=== PATIENT | female | born 1980 | race African-American/Black ===

== ENCOUNTER 2016-04-04 12:24 | Emergency (ER) | payer MEDICAID, OTHER ==
[~2016-04-04 12:24] MED LIST: AZIT1POW PO; Z.0.NO CURRENT MEDS
[2016-04-04 12:31] VITALS: BP 132/78; PULSE 98; RESP 18; TEMP 98.1; O2SAT 100
== END 2016-04-04 12:37 | disposition left against medical advice (07) ==
LOC: NEPC 12:24
DX: R07.9 Chest pain, unspecified (principal); Z53.21 Procedure and treatment not carried out due to patient leaving prior to being seen by health care provider
CPT/HCPCS: 99281

== ENCOUNTER 2016-06-08 11:11 | Emergency (ER) | payer OTHER ==
[~2016-06-08] VITALS: Ht 167.6 cm; Wt 92.0 kg
[2016-06-08 11:12] VITALS: BP 132/81; PULSE 94; RESP 16; TEMP 97.8; O2SAT 97
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
== END 2016-06-08 13:27 | disposition home or self-care (01) ==
LOC: NEPC 11:11
DX: T76.21XA Adult sexual abuse, suspected, initial encounter (principal)
CPT/HCPCS: 99281

== ENCOUNTER 2017-01-01 18:18 | Emergency (ER) | payer OTHER ==
[~2017-01-01] VITALS: Ht 167.6 cm; Wt 86.0 kg
[2017-01-02] MEDS ORDERED: HYDR-3533 PO (02:24)
[2017-01-02] MEDS ORDERED: CLIN150 PO (02:24)
== END 2017-01-01 20:03 | disposition left against medical advice (07) ==
LOC: NED 18:18
DX: R22.0 Localized swelling, mass and lump, head (principal)
CPT/HCPCS: 99281

== ENCOUNTER 2017-01-02 01:36 | Emergency (ER) | payer OTHER ==
[~2017-01-02] VITALS: Ht 167.6 cm; Wt 85.0 kg
[2017-01-02 01:37] VITALS: BP 117/73; PULSE 103; RESP 16; TEMP 99.1; O2SAT 98
[2017-01-02] MEDS ORDERED: HYDR-3533 PO (02:24)
[2017-01-02] MEDS ORDERED: CLIN150 PO (02:24)
[2017-01-02] MEDS ORDERED: CLINDAMYCIN INJ 900 MG in SODIUM CHLORIDE 0.9% INJ 100 ML IV ONE (02:30)
[2017-01-02] MEDS ORDERED: ACETAMINOPHEN/HYDROcodone 325 MG/5 MG TAB PO ONE (02:30)
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
== END 2017-01-02 03:41 | disposition home or self-care (01) ==
LOC: NEPD 01:36
DX: L03.211 Cellulitis of face (principal)
CPT/HCPCS: 10140; 86403; 87070; 96374